=== PATIENT | female | born 1975 | race Caucasian/White ===

== ENCOUNTER 2020-02-24 13:52 | Emergency (ER) | payer OTHER, SELFPAY ==
--- NOTE | ~2020-02-24 | XR_ITS ---
EXAMINATION: XR ankle RT min 3V INDICATION: Right ankle pain TECHNIQUE: Four views of the right ankle are obtained. COMPARISON: None available FINDINGS: Bone alignment at the ankle is normal. There is no fracture, dislocation, or subluxation of the ankle. A known fracture in the head of the third metatarsal is better evaluated on foot radiogra phs. There is soft tissue swelling of the foot. A plantar calcaneal enthesophyte is noted. IMPRESSION: 1. No acute osseous abnormality of the ankle. 2. Known third metatarsal fracture not well evaluated. Reviewed, dictated and finalized at location A. STICS ENGINEER
--- NOTE | ~2020-02-24 | XR_ITS ---
EXAMINATION: XR foot RT min 3V DATE: 02/24/2020 14:28 INDICATION: Right foot pain, initial encounter TECHNIQUE: Dorsoplantar, lateral, and 2 oblique views of the right foot were obtained. COMPARISON: None. FINDINGS: There is an acute, traumatic, closed fracture in the head of the third metatarsal. There is a questionable nondisplaced fourth metatarsal head fracture. The joint spaces are normal. There is s oft tissue swelling of the foot. IMPRESSION: 1. Acute third metatarsal head fracture. 2. Possible fourth metatarsal head fracture. Reviewed, dictated and finalized at location A. ESS CHECKER
[2020-02-24 14:02] VITALS: BP 154/83; PULSE 71; RESP 16; TEMP 36.8; O2SAT 100
--- NOTE | 2020-02-24 14:20 | ED.LOWEXIN ---
HPI - Extremity Injury (Lower) General Chief Complaint: Extremity Injury, Lower Stated Complaint: right foot injury Source: patient Mode of arrival: ambulatory Limitations: no limitations History of Present Illness HPI Narrative: Patient is a 44-year-old female who presents complaining of right ankle and foot pain. Patient reports injuring foot while working in yard last week with slip and fall. She reports tenderness with palpation visible bruising. She denies other injuries. Reports inconsistently using ice and NSAIDs with little relief. MD complaint: ankle injury and foot injury Related Data Home Medications Medication Instructions Recorded Confirmed No Home Medications 02/24/20 02/24/20 Allergies Allergy/AdvReac Type Severity Reaction Status Date / Time Penicillins Allergy Hives Verified 02/24/20 14:33 Review of Systems Review of Systems: Narrative: CONSTITUTIONAL: Denies fever, chills, or sweats. EYES: Denies visual changes, redness, or discharge. ENT: Denies rhinorrhea, congestion, sore throat, or otalgia. CARDIOVASCULAR: Denies chest pain, palpitations, or edema. RESPIRATORY: Denies cough or dyspnea. GASTROINTESTINAL: Denies abdominal pain, nausea, vomiting, or diarrhea. GENITOURINARY: Denies dysuria or hematuria. SKIN: Denies rash or itching. MUSCULOSKELETAL: Right ankle and foot pain NEUROLOGIC: Denies headache, numbness, dizziness, or weakness. PSYCHIATRIC: Denies anxiety or depression. PMFSH Past Medical History Medical History (Updated 02/24/20 @ 17:39 by FACUNDO Post) No significant past medical history Surgical History Surgical History H/O removal of cyst Family History Family History (Updated 02/24/20 @ 17:39 by FACUNDO Post) Other No significant family history Comments At the time of signature, I have reviewed and agree with nursing past medical, surgical, social, and family history unless otherwise noted. Please see nursing chart for further information. There is no relevant family history pertinent to the presenting complaint. Exam Narrative: Exam Narrative: GENERAL: Well-appearing, well-nourished, and in no acute distress. HEAD: Normocephalic, atraumatic. EYES: EOMI. No redness or drainage. Conjunctiva are normal. ENT: Mucous membranes pink and moist. CHEST: No respiratory distress. HEART: Regular rate and rhythm. EXTREMITIES: Ecchymosis and edema to right lateral ankle, ecchymosis and edema to base of second and fifth toes, tenderness with palpation SKIN: Warm, dry, no rash. NEURO: No focal deficits. Alert and oriented x3. Gait steady. PSYCH: Normal affect. No signs of depression or anxiety. Course Vital Signs Vital signs: Vital Signs Temperature 36.8 C 02/24/20 14:02 Pulse Rate 71 02/24/20 14:02 Respiratory Rate 16 02/24/20 14:02 Blood Pressure 154/83 H 02/24/20 14:02 Pulse Oximetry 100 02/24/20 14:02 Temperature 36.8 C 02/24/20 14:02 Pulse Rate 71 02/24/20 14:02 Respiratory Rate 16 02/24/20 14:02 Blood Pressure 154/83 H 02/24/20 14:02 Pulse Oximetry 100 02/24/20 14:02 MDM - Extremity Injury (Lower) MDM Narrative Medical decision making narrative: Patient appears to have a third metatarsal head fracture and a possible fourth metatarsal head fracture per radiology. Patient palced in postop shoe at this time and to ambulate with crutches due to pain with ambulation. Patient to follow-up with podiatry as directed. Patient is stable for discharge to home with outpatient follow-up as discussed Differential Diagnosis Differential diagnosis: Likely fracture of toe and other (Metatarsal fracture) Critical Care Time Critical Care Time Critical Care Time: No Discharge Plan Discharge Clinical Impression: Fracture of metatarsal bone of right foot Qualifiers: Encounter type: initial encounter Metatarsal bone: third Fracture type: closed Fracture align
--- NOTE | 2020-02-24 14:31 | PC.NURSE ---
PT TAKEN TO RADIOLOGY IN WHEELCHAIR
== END 2020-02-24 15:22 | disposition home or self-care (01) ==
PROVIDERS: Emergency Provider Nurse Practitioner; PCP Family Medicine
DX: S92.334A Nondisplaced fracture of third metatarsal bone, right foot, initial encounter for closed fracture (principal); W01.0XXA Fall on same level from slipping, tripping and stumbling without subsequent striking against object, initial encounter
CPT/HCPCS: 73610; 73630; 99214; G0463

== ENCOUNTER 2024-08-30 14:35 | Outpatient (CLI) | payer BC, SELFPAY ==
--- NOTE | ~2024-08-30 | MR_ITS ---
MRI of the lumbar spine Clinical History: Scoliosis Technique: Axial T2-weighted images, and sagittal T1-weighted, T2-weighted, and T2 fat-sat images wer e acquired. Findings: There is levoscoliosis. No fracture or subluxation evident. There are Modic signal changes about the L1-L2 and L4-L5 disc spaces. At L1-L2, there is moderate degenerative disc narrowing. There is minimal disc bulge with moderate fa cet arthropathy. No central canal stenosis. There is moderate to advanced right neural foraminal narr owing. Left neural foramen preserved. At L2-L3, there is severe degenerative disc narrowing. There is minimal disc bulge with moderate face t arthropathy. No central canal stenosis. There is severe right neural foraminal narrowing. Left neur al foramen preserved. L3-L4, there is moderate degenerative disc narrowing. There is mild disc bulge and moderate facet art hropathy. No central canal stenosis. There is moderate left neural foraminal narrowing. Right neural foramen preserved. At L4-L5, there is mild disc bulge with moderate to advanced facet arthropathy. No central canal sten osis. There is mild left neural foraminal narrowing. Right neural foramen preserved. At L5-S1, there is minimal disc bulge with advanced facet arthropathy. No central canal stenosis or n eural foraminal narrowing. Paravertebral soft tissues are unremarkable. Impression: Moderate degenerative spondylosis, as above, with multilevel neural foraminal narrowing. Levoscoliosis. Reviewed, dictated and finalized at [facility]. Impression: Moderate degenerative spondylosis, as above, with multilevel neural foraminal n arrowing. Levoscoliosis.
== END 2024-08-30 14:36 | disposition home or self-care (01) ==
LOC: GOSHIMG 14:35
PROVIDERS: PCP Family Medicine; Visit Provider Nurse Practitioner Adult Health
DX: M47.816 Spondylosis without myelopathy or radiculopathy, lumbar region (principal); M48.00 Spinal stenosis, site unspecified; M41.06 Infantile idiopathic scoliosis, lumbar region
CPT/HCPCS: 72148